=== PATIENT | female | born 1950 | race Caucasian/White ===

== ENCOUNTER 2017-02-19 09:07 | Day surgery (SDC) | payer MEDICARE, BC ==
[2017-02-19] MEDS ORDERED: LIDOCAINE 2% MDV (20MG/ML) 20ML VIAL IV ONE (14:00)
[2017-02-19] MEDS ORDERED: PROPOFOL 10 MG/ML VIAL IV ONE (14:00)
--- NOTE | 2017-02-21 12:00 | Operative Note ---
DATE OF SURGERY: 02/19/2017 OPERATION: ESOPHAGOGASTRODUODENOSCOPY with biopsy. INDICATION: Prior history of acid reflux with Hanley's esophagus. The patient returns at this time for surveillance. She is clinically doing well. ANESTHESIA: Intravenous sedation was administered by the department of anesthesiology and included Diprivan titrated to effect. PROCEDURE: Following informed consent from this alert individual, including a discussion of the risks and benefits of the procedure and an opportunity for the patient to ask questions, the patient was in the left lateral decubitus position. The Olympus [id number] video endoscope was inserted into the esophagus without resistance. The proximal esophagus had a normal appearance with normal folds and distensibility. The mid esophagus likewise was free from changes. The distal esophageal segment demonstrated some mild irregularity at the squamocolumnar junction, and for this reason, biopsies were taken. There were no ulcerations or erosions noted. The stomach was then entered and found to be unremarkable except for some minimal erythema in the gastric antrum. Biopsies were taken. Again, there were no ulcerations or erosions noted. The pylorus was symmetrical and patent. The duodenal bulb, sweep and descending duodenum were examined in a serial fashion and found to be normal. The endoscope was then drawn back into the body of the stomach. Retroflexion accomplished following air insufflation failed to demonstrate additional changes. There were multiple small gastric fundal polyps noted. The endoscope was then straightened and withdrawn back through the esophagus after biopsies were taken. The patient tolerated the procedure well and was returned to the recovery area in stable condition. IMPRESSION: 1. Slight irregularity at the squamocolumnar junction. Biopsies taken. 2. Minimal antral gastritis. Biopsies taken. RECOMMENDATION: The patient will be started on a clinical trial with Pepcid 20 mg twice daily due to her concerns for low calcium levels related to parathyroid surgery. Further recommendations will be forthcoming pending biopsy. She will undergo colonoscopy at this time as well. As always, thank you for allowing me to participate in the care of your patient. Keyon Hairston DO CC: Dr. Zheng BULLARD
--- NOTE | 2017-02-21 12:00 | Operative Note ---
DATE OF SURGERY: 02/19/2017 OPERATION: COLONOSCOPY to the cecum. INDICATION: Prior history of adenomatous polyps. The patient returns at this time for surveillance. ANESTHESIA: Intravenous sedation was administered by the department of anesthesiology and included Diprivan titrated to effect. PROCEDURE: Following informed consent from this alert individual including a discussion of the risks and benefits of the procedure and an opportunity for the patient to ask questions, the patient was in the left lateral decubitus position. A digital rectal examination was performed. No abnormalities were noted. Following this, the Olympus [id number] video colonoscope was inserted into the rectum without resistance. The rectal mucosa had a normal appearance with normal folds and distensibility. The colonoscope was advanced up through the colon to the level of the cecum without much difficulty. Throughout the bowel the mucosa appeared normal, the folds were normal, and the bowel was fairly well distensible. The cecum was noted by recognizing the ileocecal valve and cecal pouch. She has had previous cecal resection at the level of the appendiceal orifice for adenoma, which was removed. There was a small amount of retained debris within the cecum, which was washed vigorously with best visualization possible. From this point, the colonoscope was then withdrawn. The remainder of the colon preparation was good. No additional changes were appreciated upon withdrawal. There were no polyps noted. Retroflexion in the rectum was endoscopically unremarkable. The endoscope was straightened and removed. The patient tolerated the procedure well and was returned to the recovery area in stable condition. IMPRESSION: Unremarkable colonoscopy to the cecum. RECOMMENDATIONS: The patient will have a recheck colonoscopy in 5 years' time or sooner should problems arise. Followup will also be with Dr. Cole. As always, thank you for allowing me to participate in the care of your patient. Keyon Hairston, CC: Dr. Zheng BULLARD
== END 2017-02-19 11:50 | disposition home or self-care (01) ==
LOC: HOP 09:07
PROVIDERS: ATTEND Internal Medicine Gastroenterology
DX: Z09 Encounter for follow-up examination after completed treatment for conditions other than malignant neoplasm (principal); Z86.010 Personal history of colon polyps; K22.70 Barrett's esophagus without dysplasia; E03.9 Hypothyroidism, unspecified